=== PATIENT | female | born 1980 | race American Indian/Alaskan Native ===

== ENCOUNTER 2020-05-22 13:19 | Emergency (ER) | payer SELFPAY ==
--- NOTE | 2020-05-22 23:25 | Emergency Department Report ---
ED General Adult HPI - General Chief complaint: Neuro Symptoms/Deficit Stated complaint: RT SIDE NUMBNESS PUI?: No Time Seen by Provider: 05/22/20 23:20 Source: patient Mode of arrival: Ambulatory Limitations: No Limitations - History of Present Illness Initial comments: 40-year-old -[place] female presents to the emergency room complaining of right hand numbness that started this morning approximately 9 AM. Patient states that when she woke up she kind of shook her hand trying to get to feeling back but did not come back. She reports that her right arm feels a little heavy. Patient denies any recent travels denies any recent injuries. She denies any weakness. 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 Patient states that she is right-hand dominant. States that her fingertips appear to be swollen and tingling. Patient is taking nothing for symptoms. She denies any past medical history does not take any medications on a daily basis and has no known drug allergies. She is currently does not have a primary care provider. -: This morning Time: 09:00 Location: right, upper extremity Severity scale (0 -10): 6 Quality: other (Tingling and numbness) Consistency: intermittent Improves with: none Worsens with: none Associated Symptoms: denies: confusion, chest pain, headaches, nausea/vomiting, shortness of breath, weakness Treatments Prior to Arrival: none - Related Data Previous Rx's Medication Instructions Recorded Last Taken Type Naproxen 500 mg PO BID #30 tablet 05/22/20 Unknown Rx predniSONE [Deltasone] 20 mg PO QDAY #5 tab 05/22/20 Unknown Rx Allergies Allergy/AdvReac Type Severity Reaction Status Date / Time No Known Allergies Allergy Unverified 05/22/20 14:25 ED Review of Systems ROS: Stated complaint: RT SIDE NUMBNESS Other details as noted in HPI Comment: All other systems reviewed and negative ED Past Medical Hx - Past Medical History Previous Medical History?: No - Surgical History Past Surgical History?: No - Social History Smoking Status: Current Every Day Smoker Substance Use Type: Alcohol - Medications Home Medications: Home Medications Medication Instructions Recorded Confirmed Last Taken Type Naproxen 500 mg PO BID #30 tablet 05/22/20 Unknown Rx predniSONE [Deltasone] 20 mg PO QDAY #5 tab 05/22/20 Unknown Rx ED Physical Exam - General Limitations: No Limitations General appearance: alert - Head Head exam: Present: atraumatic, normocephalic - Eye Eye exam: Present: normal appearance - ENT ENT exam: Present: normal exam, mucous membranes moist - Neck Neck exam: Present: tenderness (Right lateral cervical tenderness that exhibits tingling to the right hand) - Respiratory Respiratory exam: Absent: accessory muscle use - Cardiovascular Cardiovascular Exam: Present: regular rate - GI/Abdominal GI/Abdominal exam: Present: soft, normal bowel sounds - Expanded Upper Extremity Exam Right Shoulder Exam: Present: normal inspection, full ROM. Absent: tenderness, swelling, abrasion Upper Arm exam: Present: normal inspection. Absent: tenderness, swelling Elbow exam: Present: normal inspection, full ROM. Absent: tenderness, swelling Forearm Wrist exam: Present: normal inspection, full ROM. Absent: tenderness, swelling Hand Wrist exam: Present: normal inspection, full ROM. Absent: tenderness, swelling Vascular: Present: normal capillary refill. Absent: vascular compromise - Back Exam Back exam: Present: normal inspection, full ROM - Neurological Exam Neurological exam: Present: alert, oriented X3, normal gait - Psychiatric Psychiatric exam: Present: normal affect, normal mood - Skin Skin exam: Present: warm, dry, intact, normal color. Absent: rash ED Course Vital Signs 05/22/20 14:26 Temperature 99.0 F Pulse Rate 78 Respiratory 16 Rate Blood Pressure 100/65 O2 Sat by Pulse 100 Oximetry ED Medical Decision Making - Medical Decision Making 40-year-old -[place] female presents to the emergency room complaining of right hand numbness that started this morning approximately 9 AM. Patient states that when she woke up she kind of shook her hand trying to get to feeling back but did not come back. She reports that her right arm feels a little heavy. Patient denies any recent travels denies any recent injuries. She denies any weakness. 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 Patient states that she is right-hand dominant. States that her fingertips appear to be swollen and tingling. Patient is taking nothing for symptoms. She denies any past medical history does not take any medications on a daily basis and has no known drug allergies. She is currently does not have a primary care provider. Discussed with patient it appears that she has a pinched nerve. Discussed with patient steroid and nonsteroidal anti-inflammatory medication will help. Referral patient to neurologist and primary care. Critical care attestation.: If time is entered above; I have spent that time in minutes in the direct care of this critically ill patient, excluding procedure time. ED Disposition Clinical Impression: Pinched nerve in neck, Numbness and tingling in right hand Disposition: DC-01 TO HOME OR SELFCARE Is pt being admited?: No Does the pt Need Aspirin: No Condition: Stable Instructions: Neuropathic Pain, Paresthesia, [id number] Additional Instructions: Please take pain medication and steroid as prescribed. Increase your fluid intake and eat before taking medication. Is important to follow-up with a neurologist and a primary care provider. Prescriptions: predniSONE [Deltasone] 20 mg PO QDAY #5 tab Naproxen 500 mg PO BID #30 tablet Referrals: PRIMARY CAREMD [Primary Care Provider] - 3-5 Days GABRIEL CASTRO II, MD [Staff Physician] - 3-5 Days SHEREEN MILLER MD [Staff Physician] - 3-5 Days Forms: Work/School Release Form(ED)
[2020-05-22] MEDS ORDERED: IBUPROFEN 600 MG TAB PO ONE (23:28)
[2020-05-22] MEDS ORDERED: predniSONE 20 MG TAB PO ONE (23:29)
[2020-05-23 00:24] VITALS: BP 114/76
== END 2020-05-23 00:25 | disposition home or self-care (01) ==
LOC: ED 13:19
DX: G58.9 Mononeuropathy, unspecified (principal); R20.0 Anesthesia of skin; F17.200 Nicotine dependence, unspecified, uncomplicated; Z79.899 Other long term (current) drug therapy
CPT/HCPCS: 82962; 99283; J7512